=== PATIENT | female | born 2000 | race American Indian/Alaskan Native ===

== ENCOUNTER 2021-09-12 09:11 | Emergency (ER) | payer OTHER, SELFPAY ==
[2021-09-12 09:18] VITALS: BP 108/68
--- NOTE | 2021-09-12 09:48 | Emergency Department Report ---
Minor Respiratory - HPI Chief Complaint: Upper Respiratory Infection Stated Complaint: COVID TEST Time Seen by Provider: 09/12/21 09:42 Duration: 3 Days Minor Respiratory: Yes Able to Tolerate Fluids (Decreased appetite), Yes Cough (Slight clearing of the throat), Yes Chest Pain (Yesterday resolved), No Rhinorrhea, No Sore Throat, No Ear Pain, No Sick Contacts, No Hemoptysis, No Shortness of Breath, No Fever Other History: 21-year-old -[place] female presents to the emergency room for 3-day history of a slight cough nausea, diarrhea and concern for Covid. Patient is unvaccinated and has not tested for Covid. She does not have a primary care provider. She states that she works at the [employer] and lifting heavy objects. States that she is around a lot of people. ED Review of Systems ROS: Stated complaint: COVID TEST Other details as noted in HPI Comment: All other systems reviewed and negative Minor Respiratory Exam - Exam General: Vital signs noted. No distress. Alert and acting appropriately. HEENT: Yes Moist Mucous Membranes, No Pharyngeal Erythema, No Pharyngeal Exudates, No Rhinorrhea, No Conjuctival Injection, No Frontal Tenderness, No Maxillary Tenderness Ear: Neither TM Bulge, Neither TM Erythema, Neither EAC Pain, Neither EAC Discharge Neck: Yes Supple, No Adenopathy Lungs: Yes Good Air Exchange, No Wheezes, No Ronchi, No Stridor, No Cough, No Labored Respirations, No Retractions, No Use of Accessory Muscles, No Other Abnormal Lung Sounds Heart: Yes Regular, No Murmur Abdomen: Yes Normal Bowel Sounds, No Tenderness, No Peritoneal Signs Skin: No Rash, No Edema Neurologic: Alert and oriented, no deficits. Musculoskeletal: Unremarkable. ED Course Vital Signs 09/12/21 09:17 Temperature 98.2 F Pulse Rate 73 Respiratory 20 Rate Blood Pressure 108/68 [Right] O2 Sat by Pulse 100 Oximetry ED Medical Decision Making - Medical Decision Making 21-year-old -[place] female presents to the emergency room for 3-day history of a slight cough nausea, diarrhea and concern for Covid. Patient is unvaccinated and has not tested for Covid. She does not have a primary care provider. She states that she works at the [employer] and lifting heavy objects. States that she is around a lot of people. Patient has stable vital signs. She is nontoxic in appearance moving air well no shortness of breath no current chest pain. Satting at 100% on room air. I do recommend that she follows up and gets a Covid test and if the test negative to get her vaccination. Discussed the patient she can take [id number] cold and cough medication. Critical care attestation.: If time is entered above; I have spent that time in minutes in the direct care of this critically ill patient, excluding procedure time. ED Disposition Clinical Impression: Suspected COVID-19 virus infection Disposition: 01 HOME / SELF CARE / HOMELESS Is pt being admited?: No Does the pt Need Aspirin: No Condition: Stable Instructions: COVID-19 Frequently Asked Questions, COVID-19: How to Protect Yourself and Others - CDC, Prevent the Spread of COVID-19 if You Are Sick - [facility] Additional Instructions: Your symptoms appear most consistent with a nonspecific viral syndrome. However, given this current pandemic, COVID-19 is in the differential of possibilities. I do recommend outpatient Covid 19 testing. In the meantime, isolate/quarantine yourself and stay away from anyone who is elderly, immunocompromised or chronically ill. You can use ibuprofen every 6-8 hours and Tylenol every 4-8 hours, using the dosing on the back of the bottle, as needed for any fever or body aches. Return to the emergency department with any worsening of your symptoms, development of chest pain or shortness of breath, or with any acute distress. Referrals: ROBB PITTS FNP [Referring] - 3-5 Days Forms: Work/School Release Form(ED) Time of Disposition: 09:48
== END 2021-09-12 10:21 | disposition home or self-care (01) ==
LOC: ED 09:11
DX: R05.9 Cough, unspecified (principal); R11.0 Nausea; R19.7 Diarrhea, unspecified; Z20.822 Contact with and (suspected) exposure to COVID-19
CPT/HCPCS: 99282